=== PATIENT | male | born 2000 | race African-American/Black ===

== ENCOUNTER 2024-01-21 17:55 | Inpatient (IN) | payer SELFPAY ==
[2024-01-21] MEDS ORDERED: INSULIN REGULAR IN 0.9 % NACL 100 UNITS/100 ML BAG ONE (18:13)
[2024-01-21 18:52] LABS: #Basophils 0.05 10x3/uL (0.0-0.2); #Eosinphils Less than 0.03 10x3/uL (0.0-0.7); %Basophils 0.2 % (0.0-1.0); %Monocytes 3.4 % (0.0-10.0); %Neutrophils 84.7 % (42.0-75.0); Hematocrit 49.1 % (42.0-52.0); Hemoglobin 16.2 g/dL (14.0-18.0); Mean Corpuscular Hemoglobin 27.9 pg (27.0-31.0); Mean Corpuscular Volume 84.7 fL (78.0-98.0); Mean Platelet Volume 12.2 fL (7.4-10.4); Platelet Count 210 10x3/uL (130-400); RBC Distribution Width 12.9 % (11.5-14.5)
[2024-01-21 19:09] LABS: Phosphorus 2.4 mg/dL (2.3-4.7)
[2024-01-21 19:13] LABS: ALT (SGPT) 27 U/L (8-55); AST (SGOT) 13 U/L (5-34); Albumin 3.9 g/dL (3.5-5.0); Alkaline Phosphatase 109 U/L (40-110); Anion Gap 24 mmol/L (10-20); BUN (Urea Nitrogen) 28 mg/dL (8.9-20.6); Bilirubin, Total 0.3 mg/dL (0.2-1.2); Calc. Creatinine Clearance 0 mL/min (70-130); Calcium 9.5 mg/dL (7.8-10.44); Carbon Dioxide Less than 8 mmol/L (22-29); Chloride 108 mmol/L (98-107); Estimated GFR 33; Globulin 4.2 g/dL (2.4-3.5); Glucose 690 mg/dL (70-105); Magnesium 2.4 mg/dL (1.6-2.6); Potassium 4.3 mmol/L (3.5-5.1); Protein, Total 8.1 g/dL (6.0-8.3); Sodium 134 mmol/L (136-145)
[2024-01-21 19:17] LABS: Lipase 470 U/L (8-78)
[2024-01-21] MEDS ORDERED: Acetaminophen 650 MG Suppository PR PRN (19:55)
[2024-01-21] MEDS ORDERED: Ondansetron ODT 4 MG TAB PO PRN (19:55)
[2024-01-21] MEDS ORDERED: Ondansetron PF 4 MG/2 ML Vial IVP PRN (19:55)
[2024-01-21] MEDS ORDERED: Sodium Chloride 0.9% 1,000 ML IV PRN ×4 (19:58)
[2024-01-21] MEDS ORDERED: Dextrose 5 %-0.45 % NaCl 1,000 ML IV PRN (19:58)
[2024-01-21] MEDS ORDERED: NS 0.9% w/ 20 MEQ KCL 1,000 ML IV PRN (19:58)
[2024-01-21] MEDS ORDERED: Dextrose 50% Abboject 50 ML SYRINGE SLOW IVP PRN (19:58)
[2024-01-21] MEDS ORDERED: NS 0.9% w/ 20 MEQ KCL 1,000 ML ONE (20:12)
[2024-01-21] MEDS: NS 0.9% w/ 20 MEQ KCL 1,000 ML IV PRN (23:00)
[2024-01-21 23:19] VITALS: BMI 45.7
[2024-01-21 23:57] LABS: Anion Gap 19 mmol/L (10-20); BUN (Urea Nitrogen) 22 mg/dL (8.9-20.6); Calc. Creatinine Clearance 111 mL/min (70-130); Calcium 9.4 mg/dL (7.8-10.44); Carbon Dioxide 13 mmol/L (22-29); Chloride 110 mmol/L (98-107); Estimated GFR 47; Glucose 425 mg/dL (70-105); Potassium 4.1 mmol/L (3.5-5.1); Sodium 138 mmol/L (136-145)
[2024-01-22] MEDS: Electrolyte Replacement Protocol 1 EACH IVPB ONE (00:36)
[2024-01-22 03:19] LABS: #Basophils 0.05 10x3/uL (0.0-0.2); #Eosinphils Less than 0.03 10x3/uL (0.0-0.7); %Basophils 0.3 % (0.0-1.0); %Lymphocytes 9.9 % (21.0-51.0); %Monocytes 9.8 % (0.0-10.0); %Neutrophils 78.8 % (42.0-75.0); Hemoglobin 14.5 g/dL (14.0-18.0); Mean Corpuscular HGB CONC 33.7 g/dL (32.0-36.0); Mean Corpuscular Volume 83.2 fL (78.0-98.0); Mean Platelet Volume 11.9 fL (7.4-10.4); Platelet Count 158 10x3/uL (130-400); RBC Distribution Width 12.9 % (11.5-14.5); Red Blood Cell (RBC) Count 5.17 mill/uL (4.70-6.10)
[2024-01-22 03:32] LABS: Anion Gap 15 mmol/L (10-20); BUN (Urea Nitrogen) 17 mg/dL (8.9-20.6); Calc. Creatinine Clearance 136 mL/min (70-130); Carbon Dioxide 14 mmol/L (22-29); Chloride 115 mmol/L (98-107); Estimated GFR 60; Glucose 321 mg/dL (70-105); Sodium 140 mmol/L (136-145)
[2024-01-22 05:39] LABS: Cardiac Risk 6.1 (Less than 4.5)
[2024-01-22 08:18] LABS: Magnesium 2.1 mg/dL (1.6-2.6)
[2024-01-22] MEDS: Enoxaparin 40 MG (0.4 mL) SYRINGE SC SCH (09:20)
[2024-01-22] MEDS: Pantoprazole 40 MG VIAL IVP SCH (09:20)
[2024-01-22] MEDS: D5 1/2 NS w/20 mEq KCL 1,000 ML IV PRN (09:31)
[2024-01-22] MEDS: Insulin Reg, Human 100 UNITS in Sodium Chloride 0.9% 100 ML IVPB SCH (12:00)
[2024-01-22 13:35] LABS: Anion Gap 9 mmol/L (10-20); BUN (Urea Nitrogen) 12 mg/dL (8.9-20.6); Calc. Creatinine Clearance 179 mL/min (70-130); Calcium 8.8 mg/dL (7.8-10.44); Carbon Dioxide 18 mmol/L (22-29); Chloride 115 mmol/L (98-107); Estimated GFR 84; Glucose 338 mg/dL (70-105); Potassium 3.8 mmol/L (3.5-5.1); Sodium 138 mmol/L (136-145)
[2024-01-22] MEDS: Sodium Chloride 0.9% 1,000 ML IV SCH (15:36)
[2024-01-22] MEDS: Insulin Glargine 30 UNITS/0.3 ML VIAL SC SCH (15:38)
[2024-01-22] MEDS: HumaLOG 300 UNITS/3 ML VIAL SC SCH (17:49)
[2024-01-22 22:00] LABS: Hemoglobin A1c 11.6 % (4.0-6.0)
[2024-01-23 03:54] LABS: #Basophils 0.04 10x3/uL (0.0-0.2); %Basophils 0.5 % (0.0-1.0); %Eosinophils 0.7 % (0.0-10.0); %Lymphocytes 34.3 % (21.0-51.0); %Monocytes 7.2 % (0.0-10.0); %Neutrophils 56.6 % (42.0-75.0); Hematocrit 35.6 % (42.0-52.0); Hemoglobin 12.3 g/dL (14.0-18.0); Mean Corpuscular HGB CONC 34.6 g/dL (32.0-36.0); Mean Corpuscular Hemoglobin 28.1 pg (27.0-31.0); Mean Corpuscular Volume 81.3 fL (78.0-98.0); Mean Platelet Volume 12.3 fL (7.4-10.4); Platelet Count 122 10x3/uL (130-400); RBC Distribution Width 13.1 % (11.5-14.5); Red Blood Cell (RBC) Count 4.38 mill/uL (4.70-6.10)
[2024-01-23 04:16] LABS: Anion Gap 14 mmol/L (10-20); BUN (Urea Nitrogen) 10 mg/dL (8.9-20.6); Calc. Creatinine Clearance 211 mL/min (70-130); Calcium 8.6 mg/dL (7.8-10.44); Carbon Dioxide 15 mmol/L (22-29); Chloride 109 mmol/L (98-107); Estimated GFR 103; Glucose 384 mg/dL (70-105); Potassium 3.1 mmol/L (3.5-5.1); Sodium 135 mmol/L (136-145)
[2024-01-23] MEDS: Sodium Bicarbonate Tab 325 MG TAB PO SCH (09:29)
[2024-01-23] MEDS: Potassium Chloride 20 MEQ TAB PO SCH (09:29)
[2024-01-23] MEDS: metFORMIN XR 500 MG ER.TAB PO SCH (09:29)
[2024-01-23] MEDS: Insulin Glargine 30 UNITS/0.3 ML VIAL SC SCH ×2 (11:25→20:43)
[2024-01-23] MEDS: Acetaminophen 325 MG TAB PO PRN (12:46)
[2024-01-23] MEDS ORDERED: HumaLOG 300 UNITS/3 ML VIAL SC PRN (15:24)
[2024-01-24 04:52] LABS: Anion Gap 16 mmol/L (10-20); BUN (Urea Nitrogen) 13 mg/dL (8.9-20.6); Calc. Creatinine Clearance 250 mL/min (70-130); Calcium 8.4 mg/dL (7.8-10.44); Carbon Dioxide 19 mmol/L (22-29); Chloride 107 mmol/L (98-107); Estimated GFR 123; Glucose 420 mg/dL (70-105); Potassium 3.1 mmol/L (3.5-5.1); Sodium 139 mmol/L (136-145)
[2024-01-24] MEDS: HumaLOG 300 UNITS/3 ML VIAL SC PRN (05:16)
[2024-01-24 08:07] VITALS: TEMP 98.2
[2024-01-24] MEDS: Insulin Glargine 30 UNITS/0.3 ML VIAL SC SCH (08:30)
== END 2024-01-24 15:54 | disposition home or self-care (01) | DRG 638 ==
LOC: ERS 17:55 → IMCU/EMU 19:48
PROVIDERS: ADMIT Student in an Organized Health Care Education/Training Program; ATTEND Internal Medicine
DX: E11.10 Type 2 diabetes mellitus with ketoacidosis without coma (principal); N17.9 Acute kidney failure, unspecified; F12.90 Cannabis use, unspecified, uncomplicated; D72.829 Elevated white blood cell count, unspecified; E87.6 Hypokalemia; Z79.84 Long term (current) use of oral hypoglycemic drugs; Z79.4 Long term (current) use of insulin
CPT/HCPCS: 36415; 36416; 80048; 80061; 82010; 83036; 83690; 83735; 84100; 85025; 96374; 96375; C9113; J1650; J1815; J3480; J3490; J7030; J7042; J7050